=== PATIENT | female | born 1945 | race Caucasian/White ===

== ENCOUNTER 2016-12-18 07:55 | Day surgery (SDC) | payer MEDICARE ==
[~2016-12-18] VITALS: Ht 156.2 cm; Wt 55.5 kg
[~2016-12-18 07:55] MED LIST: CEPH250 PO; DSS100 PO; HYDR2 PO; INSLAN SQ; ONDA4 PO
[2016-12-18] MEDS ORDERED: SODIUM CHLORIDE 0.9% 1,000 ML IV ONE (08:00)
[2016-12-18] MEDS ORDERED: RINGERS SOLUTION,LACTATED 1,000 ML IV ONE ×3 (08:20→13:30)
[2016-12-18] MEDS ORDERED: LOSA1TAB12 PO (08:49)
[2016-12-18] MEDS ORDERED: MIRALAX PO (08:49)
[2016-12-18] MEDS ORDERED: LIOT5 PO (08:49)
[2016-12-18] MEDS ORDERED: LOSA1TAB2 PO (08:49)
[2016-12-18] MEDS ORDERED: HYDR-3971 PO (08:50)
[2016-12-18] MEDS ORDERED: [UNRECOGNIZED DRUG - REMARK] PO (08:51)
[2016-12-18] MEDS ORDERED: LORazepam 2 MG/ML VIAL IM ONE (09:00)
[2016-12-18] MEDS ORDERED: HEPARIN SODIUM 1000 UNITS/NS 500 ML ONE (09:23)
[2016-12-18 09:33] LABS: ANION GAP 10 mmol/L (8-16); CALCIUM, TOTAL 10.1 mg/dL (8.8-10.5); CARBON DIOXIDE 27 mmol/L (22-29); CHLORIDE 95 mmol/L (98-107); CREATININE 0.61 mg/dL (0.60-1.30); GLOMERULAR FILTR. RATE CALC > 60 mL/min (>60); POTASSIUM 4.3 mmol/L (3.5-5.1); SODIUM SERUM 132 mmol/L (136-145); UREA NITROGEN, BLOOD 16 mg/dL (7-18)
[2016-12-18 09:37] LABS: INR 0.9 (0.9-1.1); PROTHROMBIN TIME 9.8 SEC (9.4-11.6)
[2016-12-18] MEDS ORDERED: LORazepam 2 MG/ML VIAL ONE ×2 (09:58→10:40)
[2016-12-18] MEDS ORDERED: CIPROFLOXACIN 400 MG/D5% WATER 200 ML IV ONE (10:00)
[2016-12-18] MEDS ORDERED: IODIXANOL 320 MG/ML 100 ML VIAL ONE (10:06)
[2016-12-18] MEDS ORDERED: MIDAZOLAM HCL 2 MG/2 ML VIAL ONE (10:41)
[2016-12-18] MEDS ORDERED: FentaNYL CITRATE-PF 100 MCG/2 ML VIAL ONE ×2 (10:41→11:59)
[2016-12-18] MEDS ORDERED: LORazepam 2 MG/ML VIAL IVP ONE (10:51)
[2016-12-18] MEDS ORDERED: LIDOCAINE HCL/PF 1% 30 ML VIAL ONE (10:58)
[2016-12-18] MEDS ORDERED: HYDROmorphone 2 MG/ML SYRINGE IVP ONE ×2 (11:00→13:00)
[2016-12-18] MEDS ORDERED: MIDAZOLAM HCL 2 MG/2 ML VIAL IVP ONE ×2 (11:04→11:53)
[2016-12-18] MEDS ORDERED: FentaNYL CITRATE-PF 100 MCG/2 ML VIAL IVP ONE ×3 (11:04→11:58)
[2016-12-18] MEDS ORDERED: SODIUM CHLORIDE 0.45% 1,000 ML IV ONE (13:00)
[2016-12-18] MEDS ORDERED: PIPERACILLIN/TAZO 3.375 GM/D5W 50 ML IV ONE (13:00)
[2016-12-18] MEDS ORDERED: PROMETHAZINE HCL 25 MG/ML VIAL IM ONE (13:00)
[2016-12-18] MEDS ORDERED: 0.9% SODIUM CHLORIDE 10 ML SYRINGE IVP ONE (13:16)
[2016-12-18] MEDS ORDERED: PROMETHAZINE HCL 25 MG/ML VIAL ONE (13:52)
== END 2016-12-18 15:15 | disposition home or self-care (01) ==
LOC: SDS 07:55 → EDSTATUS 10:00 → SDS 15:15
PROVIDERS: ATTEND Radiology Diagnostic Radiology
DX: K83.1 Obstruction of bile duct (principal); C25.9 Malignant neoplasm of pancreas, unspecified; E11.9 Type 2 diabetes mellitus without complications; K76.9 Liver disease, unspecified; M54.9 Dorsalgia, unspecified; Z79.4 Long term (current) use of insulin; Z88.8 Allergy status to other drugs, medicaments and biological substances; Z98.890 Other specified postprocedural states
CPT/HCPCS: 36415; 47540; 80048; 85049; 85610; 85730; C1769 ×2; C1874 ×2; C1887; C1892; J0744; J1170; J1644; J2060; J2250; J2543; J2550; J3010; J3490; J7120; Q9967; 74363; 76942

== ENCOUNTER 2016-12-19 08:23 | Day surgery (SDC) | payer MEDICARE ==
[~2016-12-19] VITALS: Ht 156.2 cm; Wt 55.5 kg
[~2016-12-19 08:23] MED LIST changes: -CEPH250 PO; +CeFAZolin 1 GM/DEXTROSE 50 ML IV ONE; -DSS100 PO; +HYDR-3971 PO; -HYDR2 PO; +LIOT5 PO; +LORazepam 2 MG/ML VIAL IVP ONE; +LOSA1TAB12 PO; +LOSA1TAB2 PO; +MIRALAX PO; -ONDA4 PO; +SODIUM CHLORIDE 0.9% 1,000 ML IV SCH; +[UNRECOGNIZED DRUG - REMARK] PO
[2016-12-19] MEDS ORDERED: LORazepam 2 MG/ML VIAL ONE (08:49)
[2016-12-19] MEDS ORDERED: SODIUM CHLORIDE 0.9% 1,000 ML IV ONE (08:49)
[2016-12-19 10:01] LABS: GLUCOSE COMMENT 1 Stat Lab Glu Request; GLUCOSE,POINT OF CARE 430 MG/DL (70-110)
[2016-12-19] MEDS ORDERED: HYDROmorphone 2 MG/ML SYRINGE IVP ONE ×2 (10:30→17:00)
[2016-12-19] MEDS ORDERED: INSULIN REGULAR, HUMAN 100 UNITS/ML SQ ONE (10:30)
[2016-12-19] MEDS ORDERED: INSULIN REGULAR, HUMAN 100 UNITS/ML ONE (10:37)
[2016-12-19] MEDS ORDERED: MIDAZOLAM HCL 2 MG/2 ML VIAL IVP ONE (12:00)
[2016-12-19] MEDS ORDERED: FentaNYL CITRATE-PF 100 MCG/2 ML VIAL IVP ONE (12:00)
[2016-12-19 12:17] LABS: GLUCOSE COMMENT 1 Doctor Notified; GLUCOSE,POINT OF CARE 315 MG/DL (70-110)
[2016-12-19] MEDS ORDERED: KETAMINE HCL 50 MG/ML 10 ML VIAL ONE (13:32)
[2016-12-19] MEDS ORDERED: LIDOCAINE HCL/PF 1% 30 ML VIAL ONE (13:46)
[2016-12-19] MEDS ORDERED: CIPROFLOXACIN 400 MG/D5% WATER 200 ML IV ONE (14:00)
[2016-12-19] MEDS ORDERED: SODIUM CHLORIDE 0.9% 100 ML ONE (14:19)
[2016-12-19] MEDS ORDERED: IOVERSOL 350 MG/ML 100 ML VIAL ONE (14:19)
[2016-12-19] MEDS ORDERED: HYDROmorphone HCL 2 MG TABLET PO ONE (17:00)
[2016-12-19] MEDS ORDERED: PROMETHAZINE HCL 25 MG/ML VIAL IM ONE (17:00)
[2016-12-19] MEDS ORDERED: SODIUM CHLORIDE 0.9% 500 ML IV ONE (17:00)
== END 2016-12-19 19:10 | disposition home or self-care (01) ==
LOC: SDS 08:23 → EDSTATUS 11:00 → SDS 19:10
PROVIDERS: ATTEND Radiology Diagnostic Radiology
DX: D49.0 Neoplasm of unspecified behavior of digestive system (principal); K76.9 Liver disease, unspecified; E11.9 Type 2 diabetes mellitus without complications; M54.9 Dorsalgia, unspecified; Z79.4 Long term (current) use of insulin; Z90.49 Acquired absence of other specified parts of digestive tract; Z88.8 Allergy status to other drugs, medicaments and biological substances; Z98.890 Other specified postprocedural states
CPT/HCPCS: 36415; 48999; 77012; 82947; 82948; 82962; J0744; J1170; J1815; J2250; J3010; J3490 ×2; J7030; J7050; Q9967; J2060